=== PATIENT | female | born 1950 | race Caucasian/White ===

== ENCOUNTER 2019-11-29 06:30 | Day surgery (SDC) | payer MEDICARE ==
[2019-11-19 16:19] LABS: CLARITY,URINE CLEAR (Clear); COLOR,URINE YELLOW (Yellow); GLUCOSE, URINE NEGATIVE (Neg); KETONES,URINE NEGATIVE (Neg); LEUKOCYTE ESTERASE ,URINE NEGATIVE (Neg); NITRITES, URINE NEGATIVE (Neg); OCCULT BLOOD,URINE NEGATIVE (Neg); PH,URINE 5.5 (4.8-8.0); PROTEIN,URINE NEGATIVE (Neg); UROBILINOGEN,URINE 0.2 E.U/dL (0.2-1.0)
[2019-11-19 16:20] LABS: BASOPHILS % (AUTO) 0.4 % (0-1); EOSINOPHILS # (AUTO) 0.1 X10'3 (0-0.9); EOSINOPHILS % (AUTO) 1.6 % (0-6); LYMPHOCYTES # (AUTO) 1.1 X10'3 (1.1-4.8); LYMPHOCYTES % (AUTO) 15.5 % (21-51); MEAN CORPUSCULAR HEMOGLOBIN 30.2 PG (27.0-31.0); MEAN CORPUSCULAR HGB CONC 33.6 g/dL (33.0-36.5); MEAN CORPUSCULAR VOLUME 90.1 FL (78-98); MEAN PLATELET VOLUME 7.9 FL (7.4-10.4); MONOCYTES # (AUTO) 0.5 X10'3 (0-0.9); MONOCYTES % (AUTO) 7.3 % (2-12); NEUTROPHILS # (AUTO) 5.2 X10'3 (1.8-7.7); NEUTROPHILS % (AUTO) 75.2 % (42-75); PRE OP HEMATOCRIT 42.3 % (35.0-45.0); PRE OP HEMOGLOBIN 14.2 g/dL (12.0-16.0); PRE OP PLATELET COUNT 272 X10'3 (140-440); RED BLOOD COUNT 4.69 X10'6 (4.20-5.60)
[2019-11-19 16:35] LABS: UA COLLECTION TYPE CLN CATCH MIDSTREAM
[2019-11-19 16:38] LABS: ALBUMIN 3.8 G/DL (3.4-5.0); ALBUMIN/GLOBULIN RATIO 1.2 (1.1-1.5); ALKALINE PHOSPHATASE 85 IU/L (46-116); BLOOD UREA NITROGEN 19 MG/DL (7-18); BUN/CREATININE RATIO 18.4 (6.6-38.0); CALCIUM 9.2 MG/DL (8.5-10.1); CHLORIDE 108 MMOL/L (99-107); CREATININE 1.03 MG/DL (0.40-0.90); PRE OP ALT 33 U/L (30-65); PRE OP ANION GAP 7 (8-16); PRE OP AST 20 U/L (10-37); PRE OP BILIRUB, TOTAL 0.7 MG/DL (0.0-1.0); PRE OP GLUCOSE 101 MG/DL (70-104); PRE OP POTASSIUM 3.6 MMOL/L (3.4-5.1); PRE OP SODIUM 144 MMOL/L (135-145); TOTAL CARBON DIOXIDE 28.8 MMOL/L (24-32); eGFR 53 ML/MIN
[~2019-11-29] VITALS: Ht 167.6 cm; Wt 76.5 kg
[2019-11-29] VITALS (8 sets, daily range): BP systolic 121–141; BP diastolic 72–84
[~2019-11-29 06:30] MED LIST: NO HOME MEDS; ceFOXitin 2GM-NS 100mL ADDvant 100 ML IV ONE; famotidine 20mg tablet PO ONE; ringers solution, lacted 1,000 ML IV SCH
[2019-11-29] MEDS ORDERED: ringers solution, lacted 1,000 ML IV SCH (07:58)
[2019-11-29] MEDS ORDERED: proCHLORperazine 10 MG/2 ml inj IV PRN (08:00)
[2019-11-29] MEDS ORDERED: ondansetron/PF 4mg/2ml inj IV PRN (08:00)
[2019-11-29] MEDS ORDERED: morphine 2 MG/ML inj. syringe IV PRN (08:00)
[2019-11-29] MEDS ORDERED: meperidine/PF 25mg/ml syringe IV PRN ×3 (08:00)
[2019-11-29] MEDS ORDERED: morphine 4 MG/ML inj SYRINge IV PRN (08:00)
[2019-11-29] MEDS ORDERED: gelatin sponge, absorbable (Gelfoam 100) sponge TP ONE (09:16)
[2019-11-29] MEDS ORDERED: fentaNYL/PF 50MCG/1 ML 2ML syringe ONE (09:45)
[2019-11-29] MEDS ORDERED: sevoflurane 250ml liquid IH ONE (09:45)
[2019-11-29] MEDS ORDERED: midazolam 2 mg/2 ml injection ONE (09:45)
[2019-11-29] MEDS ORDERED: dexamethasone sod phosphate 10mg/ml inj ONE (09:45)
[2019-11-29] MEDS ORDERED: propofol inj 20 ML IV ONE (09:53)
[2019-11-29] MEDS ORDERED: LIDOcaine 2% (20mg/ml) 5ml vial ONE (09:54)
[2019-11-29] MEDS ORDERED: ondansetron/PF 4mg/2ml inj ONE (10:00)
[2019-11-29] MEDS ORDERED: ketorolac trometh. 30mg/ml inj. ONE (10:35)
--- NOTE | 2019-11-29 10:38 | NUR ---
Received from OR via , accompanied by Anesthesiologist DR GOMEZ and report given by Anesthesiolgist. AWAKENS TO VOICE. VITALS STABLE. DRESSING DI. KATHY PAIN. ABD SOFT.
--- NOTE | 2019-11-29 11:48 | NUR ---
AWAKE AND ORIENTED. VITALS STABLE. DRESSING DI. KATHY PAIN. HOME WITH SPOUSE AT THIS TIME.
== END 2019-11-29 11:48 | disposition home or self-care (01) ==
LOC: PAS 06:30
PROVIDERS: ATTEND Obstetrics & Gynecology Obstetrics
DX: N95.0 Postmenopausal bleeding (principal); N84.0 Polyp of corpus uteri; C54.1 Malignant neoplasm of endometrium; Z98.890 Other specified postprocedural states; Z11.59 Encounter for screening for other viral diseases; Z79.899 Other long term (current) drug therapy; Z87.891 Personal history of nicotine dependence; Z80.3 Family history of malignant neoplasm of breast; Z80.1 Family history of malignant neoplasm of trachea, bronchus and lung; Z83.3 Family history of diabetes mellitus
CPT/HCPCS: 36415; 58558; 71046; 80053; 81003; 82948; 85025; 86885; 86900; 86901; 93005; J0694; J1100; J1885; J2001; J2250; J2405; J2704; J3010; J7030; J7120; U0003; A4355; A4618; A6253; A6258; A7000

== ENCOUNTER 2020-11-20 08:36 | Day surgery (SDC) | payer MEDICARE ==
[~2020-11-20] VITALS: Ht 167.6 cm; Wt 62.7 kg
[2020-11-20] VITALS (15 sets, daily range): BP systolic 101–129; BP diastolic 62–85
[~2020-11-20 08:36] MED LIST changes: -ceFOXitin 2GM-NS 100mL ADDvant 100 ML IV ONE; -famotidine 20mg tablet PO ONE; -ringers solution, lacted 1,000 ML IV SCH
[2020-11-20] MEDS ORDERED: normal saline 1000ml 1,000 ML IV PRN (09:05)
[2020-11-20 09:30] LABS: BASOPHILS % (AUTO) 0.7 % (0-1); EOSINOPHILS # (AUTO) 0.1 X10'3 (0-0.9); EOSINOPHILS % (AUTO) 0.9 % (0-6); HEMATOCRIT 38.3 % (35.0-45.0); LYMPHOCYTES # (AUTO) 0.7 X10'3 (1.1-4.8); LYMPHOCYTES % (AUTO) 11.4 % (21-51); MEAN CORPUSCULAR HEMOGLOBIN 32.5 PG (27.0-31.0); MEAN CORPUSCULAR HGB CONC 33.9 g/dL (33.0-36.5); MEAN CORPUSCULAR VOLUME 95.9 FL (78-98); MONOCYTES # (AUTO) 0.5 X10'3 (0-0.9); MONOCYTES % (AUTO) 7.3 % (2-12); NEUTROPHILS # (AUTO) 5.2 X10'3 (1.8-7.7); NEUTROPHILS % (AUTO) 79.7 % (42-75); PLATELET COUNT 290 X10'3 (140-440); RED BLOOD COUNT 3.99 X10'6 (4.20-5.60); RED CELL DISTRIBUTION WIDTH 13.8 % (11.5-14.5); WHITE BLOOD COUNT 6.6 X10'3 (4.5-11.0)
[2020-11-20] MEDS ORDERED: LACT1CAP65 PO (09:36)
[2020-11-20] MEDS ORDERED: NIAC500C12 PO (09:36)
[2020-11-20] MEDS ORDERED: METF-436 PO (09:36)
[2020-11-20] MEDS ORDERED: CHOL400C8 (09:36)
[2020-11-20] MEDS ORDERED: VITA-3 PO (09:36)
[2020-11-20] MEDS ORDERED: ATOR10TA70 PO (09:36)
[2020-11-20] MEDS ORDERED: DOXY-1 PO (09:36)
[2020-11-20] MEDS ORDERED: [UNRECOGNIZED DRUG - CODE] (09:36)
[2020-11-20] MEDS ORDERED: PROC-8 PO (09:36)
[2020-11-20] MEDS ORDERED: MEBE100T11 PO (09:36)
[2020-11-20] MEDS ORDERED: LORA10CA PO (09:36)
[2020-11-20] MEDS ORDERED: ENZY1CAP5 (09:36)
[2020-11-20] MEDS ORDERED: THY15T PO (09:36)
[2020-11-20] MEDS ORDERED: POTA99TA21 PO (09:36)
[2020-11-20] MEDS ORDERED: FLAX10007 PO (09:36)
[2020-11-20] MEDS ORDERED: CA C1TAB89 PO (09:36)
[2020-11-20] MEDS ORDERED: UBID30CA19 (09:36)
[2020-11-20] MEDS ORDERED: ASPI-1468 PO (09:36)
[2020-11-20] MEDS ORDERED: LYR25C PO (09:36)
[2020-11-20] MEDS ORDERED: SELE200C PO (09:36)
[2020-11-20] MEDS ORDERED: ONDA4TAB6 PO (09:36)
[2020-11-20] MEDS ORDERED: fentaNYL/PF 50MCG/1 ML 2ML syringe ONE (10:19)
[2020-11-20] MEDS ORDERED: midazolam 1 mg/ML 2ml injection ONE (10:19)
[2020-11-20] MEDS ORDERED: HYDROcodone/acetaminophen 5mg/325mg tablet PO PRN ×2 (11:15)
[2020-11-20] MEDS ORDERED: morphine 4 MG/ML inj SYRINge IV PRN (11:15)
--- NOTE | 2020-11-20 15:33 | NUR ---
Pt w/pink tinged productive cough-crackles on auscultation-Pt denies CP/SOB-encouraged to continue clearing secretions-VSS Addendum: 11/20/20 at 1541 by Susan Miguel RN Amended: Links added.
== END 2020-11-20 15:20 | disposition home or self-care (01) ==
LOC: SSTAY O 08:36
PROVIDERS: ATTEND Radiology Vascular & Interventional Radiology
DX: R91.1 Solitary pulmonary nodule (principal); C78.02 Secondary malignant neoplasm of left lung; C54.1 Malignant neoplasm of endometrium; Z79.899 Other long term (current) drug therapy; Z79.82 Long term (current) use of aspirin; Z79.01 Long term (current) use of anticoagulants
CPT/HCPCS: 32408; 36415; 71045; 82948; 85025; 85610; 99152; 99153; J2250; J3010; 77012

== ENCOUNTER 2021-03-23 15:08 | Inpatient (IN) | payer MEDICARE ==
[~2021-03-23] VITALS: Ht 167.6 cm; Wt 60.9 kg
[~2021-03-23 15:08] MED LIST changes: +ASPI-1468 PO; +ATOR10TA70 PO; +CA C1TAB89 PO; +CHOL400C8; +DOXY-1 PO; +ENZY1CAP5; +FLAX10007 PO; +LACT1CAP65 PO; +LORA10CA PO; +LYR25C PO; +MEBE100T11 PO; +METF-436 PO; +NIAC500C12 PO; -NO HOME MEDS; +ONDA4TAB6 PO; +POTA99TA26 PO; +PROC-8 PO; +SELE200C PO; +THY15T PO; +UBID30CA19; +VITA-3 PO; +[UNRECOGNIZED DRUG - CODE]
[2021-03-23] MEDS ORDERED: normal saline 1000ML IV soln IV ONE (15:20)
[2021-03-23] MEDS ORDERED: acetaminophen 325mg tablet PO STA (15:20)
[2021-03-23] MEDS ORDERED: CefTRIAXone 2gm/D5W 50ml BAG 50 ML IV ONE (15:20)
[2021-03-23 16:04] LABS: BASOPHILS % (AUTO) 0.2 % (0-1); EOSINOPHILS # (AUTO) 0.1 X10'3 (0-0.9); EOSINOPHILS % (AUTO) 1.8 % (0-6); HEMATOCRIT 30.7 % (35.0-45.0); HEMOGLOBIN 10.4 g/dl (12.0-16.0); LYMPHOCYTES # (AUTO) 0.3 X10'3 (1.1-4.8); LYMPHOCYTES % (AUTO) 4.2 % (21-51); MEAN CORPUSCULAR HEMOGLOBIN 30.7 PG (27.0-31.0); MEAN CORPUSCULAR HGB CONC 33.9 g/dL (33.0-36.5); MEAN CORPUSCULAR VOLUME 90.4 FL (78-98); MEAN PLATELET VOLUME 6.8 FL (7.4-10.4); MONOCYTES # (AUTO) 0.6 X10'3 (0-0.9); MONOCYTES % (AUTO) 8.7 % (2-12); NEUTROPHILS # (AUTO) 5.4 X10'3 (1.8-7.7); NEUTROPHILS % (AUTO) 85.1 % (42-75); PLATELET COUNT 361 X10'3 (140-440); RED CELL DISTRIBUTION WIDTH 14.5 % (11.5-14.5); WHITE BLOOD COUNT 6.4 X10'3 (4.5-11.0)
[2021-03-23 16:16] LABS: ALANINE AMINOTRANSFERASE 56 U/L (12-78); ALBUMIN 2.4 G/DL (3.4-5.0); ALBUMIN/GLOBULIN RATIO 0.6 (1.1-1.5); ALKALINE PHOSPHATASE 252 IU/L (46-116); ANION GAP 9 (8-16); ASPARTATE AMINO TRANSFERASE 34 U/L (10-37); BILIRUBIN,TOTAL 0.5 MG/DL (0.1-1.0); BLOOD UREA NITROGEN 14 MG/DL (7-18); BUN/CREATININE RATIO 18.7 (6.6-38.0); CALCIUM 8.8 MG/DL (8.5-10.1); CHLORIDE 98 MMOL/L (99-107); CREATININE 0.75 MG/DL (0.40-0.90); GLUCOSE 175 MG/DL (70-104); POTASSIUM 4.4 MMOL/L (3.5-5.1); SODIUM 135 MMOL/L (135-145); TOTAL CARBON DIOXIDE 27.7 MMOL/L (24-32); TOTAL PROTEIN 6.7 G/DL (6.4-8.2); eGFR 76 ML/MIN
[2021-03-23] MEDS ORDERED: azithromycin/NS 500mg/250ml 250 ML IV ONE (16:30)
[2021-03-23] MEDS ORDERED: iohexol 350MG/ML 100ml bottle IV ONE (17:25)
[2021-03-23 18:28] LABS: CLARITY,URINE CLEAR (Clear); COLOR,URINE YELLOW (Yellow); GLUCOSE, URINE NEGATIVE (Neg); KETONES,URINE NEGATIVE (Neg); NITRITES, URINE NEGATIVE (Neg); OCCULT BLOOD,URINE NEGATIVE (Neg); PH,URINE 6.5 (4.8-8.0); PROTEIN,URINE Negative (Neg); UA COLLECTION TYPE CLN CATCH MIDSTREAM
[2021-03-23 18:29] LABS: LEUKOCYTE ESTERASE ,URINE NEGATIVE (Neg); UROBILINOGEN,URINE 0.2 E.U/dL (0.2-1.0)
[2021-03-23] MEDS ORDERED: ipratropium/albuterol 3ml nebule NEB ONE (18:45)
[2021-03-23] MEDS ORDERED: methylPREDNISolone sod succ 125mg/2ml vial IV ONE (18:45)
--- NOTE | 2021-03-23 19:01 | NUR ---
PA NOTIFIED OF BP
[2021-03-23] MEDS ORDERED: normal saline 1000ml 1,000 ML IV ONE (19:05)
[2021-03-23] MEDS ORDERED: acetaminophen 325mg tablet PO PRN (19:55)
[2021-03-23] MEDS ORDERED: potassium Cl 40MEQ/1/2NS 520ml 520 ML IV PRN ×2 (19:55)
[2021-03-23] MEDS ORDERED: HYDROcodone/acetaminophen 5mg/325mg tablet PO PRN (19:55)
[2021-03-23] MEDS ORDERED: morphine 2 MG/ML inj. syringe IV PRN (19:55)
[2021-03-23] MEDS ORDERED: potassium Cl 20 mEq SR tablet PO PRN ×2 (19:55)
[2021-03-23] MEDS ORDERED: ipratropium/albuterol 3ml nebule NEB PRN ×2 (19:55)
[2021-03-23] MEDS ORDERED: magnesium 4gm in 100ml NS 100 ML IV PRN (19:55)
[2021-03-23] MEDS ORDERED: magnesium 2GM in 50ml NS 50 ML IV PRN (19:55)
[2021-03-23] MEDS ORDERED: ondansetron/PF 4mg/2ml inj IV PRN (19:55)
[2021-03-23] MEDS ORDERED: magnesium Cl slow-release 64mg tablet PO PRN (19:55)
[2021-03-23] MEDS ORDERED: K and/or MAG REPLACEMENT MC SCH (20:00)
[2021-03-24 01:29] LABS: BASOPHILS % (AUTO) 0.4 % (0-1); EOSINOPHILS % (AUTO) 0 % (0-6); HEMATOCRIT 28.1 % (35.0-45.0); HEMOGLOBIN 9.7 g/dl (12.0-16.0); LYMPHOCYTES # (AUTO) 0.1 X10'3 (1.1-4.8); LYMPHOCYTES % (AUTO) 1.8 % (21-51); MEAN CORPUSCULAR HEMOGLOBIN 31.7 PG (27.0-31.0); MEAN CORPUSCULAR HGB CONC 34.5 g/dL (33.0-36.5); MEAN CORPUSCULAR VOLUME 91.6 FL (78-98); MEAN PLATELET VOLUME 7.1 FL (7.4-10.4); MONOCYTES # (AUTO) 0.1 X10'3 (0-0.9); MONOCYTES % (AUTO) 1.7 % (2-12); NEUTROPHILS % (AUTO) 96.1 % (42-75); PLATELET COUNT 285 X10'3 (140-440); RED BLOOD COUNT 3.07 X10'6 (4.20-5.60); RED CELL DISTRIBUTION WIDTH 14.2 % (11.5-14.5); WHITE BLOOD COUNT 4.2 X10'3 (4.5-11.0)
[2021-03-24 01:40] LABS: ALBUMIN 2.1 G/DL (3.4-5.0); ANION GAP 12 (8-16); BLOOD UREA NITROGEN 10 MG/DL (7-18); BUN/CREATININE RATIO 17.9 (6.6-38.0); CALCIUM 8.2 MG/DL (8.5-10.1); CHLORIDE 103 MMOL/L (99-107); CREATININE 0.56 MG/DL (0.40-0.90); GLUCOSE 159 MG/DL (70-104); MAGNESIUM 1.7 MG/DL (1.5-2.4); POTASSIUM 4.1 MMOL/L (3.5-5.1); SODIUM 140 MMOL/L (135-145); TOTAL CARBON DIOXIDE 25.4 MMOL/L (24-32); eGFR > 90 ML/MIN
[2021-03-24] MEDS ORDERED: CefTRIAXone/D5W-Rocephin 1gm 50 ML IV SCH (08:00)
[2021-03-24] MEDS ORDERED: azithromycin/NS 500mg/250ml 250 ML IV SCH (08:00)
[2021-03-24 08:15] VITALS: BP 110/57
[2021-03-24] MEDS ORDERED: ONDA-104 PO (08:29)
[2021-03-24] MEDS ORDERED: LEVO50TA8 PO (08:29)
[2021-03-24] MEDS ORDERED: HYDR-3972 PO (08:29)
[2021-03-24] MEDS ORDERED: PROC10TA10 PO (08:29)
[2021-03-24] MEDS ORDERED: ALBU8HFA PO (12:32)
[2021-03-24] MEDS ORDERED: ALB0.5UD IH (12:32)
[2021-03-24] MEDS ORDERED: LEVO500T90 PO (12:32)
--- NOTE | 2021-03-24 12:34 | NUR ---
DANIELLE GUZMAN MGR CALLED. NEB WILL BE DELIVERED TO PT'S HOME. BEEN ARRANGED.
== END 2021-03-24 13:18 | disposition home or self-care (01) | DRG 194 ==
LOC: ER 15:09 → ED HOLD 20:00
PROVIDERS: ADMIT Internal Medicine; ATTEND Family Medicine
PROC: B32T1ZZ Computerized Tomography (CT Scan) of Left Pulmonary Artery using Low Osmolar Contrast (ICD-10-PCS; principal; 2021-03-23)
PROC: B3201ZZ Computerized Tomography (CT Scan) of Thoracic Aorta using Low Osmolar Contrast (ICD-10-PCS; 2021-03-23)
PROC: B32S1ZZ Computerized Tomography (CT Scan) of Right Pulmonary Artery using Low Osmolar Contrast (ICD-10-PCS; 2021-03-23)
DX: J18.9 Pneumonia, unspecified organism (principal); C34.90 Malignant neoplasm of unspecified part of unspecified bronchus or lung; C79.82 Secondary malignant neoplasm of genital organs; Z20.822 Contact with and (suspected) exposure to COVID-19; E03.9 Hypothyroidism, unspecified; E78.5 Hyperlipidemia, unspecified; G62.9 Polyneuropathy, unspecified; Z79.84 Long term (current) use of oral hypoglycemic drugs; Z90.710 Acquired absence of both cervix and uterus; Z79.899 Other long term (current) drug therapy
CPT/HCPCS: 36415; 71045; 71275; 80048; 80053; 81003; 83605; 83735; 84145; 85025; 87040; 87502; 87503; 87635; 93005; 94640; 94760; 96361; 96365; 96366; 96368; 96375; 99285; C9803; G0378; J0456; J0696; J2270; J2405; J2930; J7030; Q9967